=== PATIENT | female | born 1950 | race Caucasian/White ===

== ENCOUNTER 2018-03-14 13:59 | Emergency (ER) | payer MEDICARE, OTHER ==
[2018-03-14] MEDS ORDERED: Piperacillin/Tazobac ADVAN(*) 3.375 GM in NS 0.9% 100 ML* 100 ML IVPB ONE (14:52)
[2018-03-14] MEDS ORDERED: Tetan/Diph/Pertus SYR(Tdap)* 0.5 ML SYR(BOOSTRIX) use SYR IM ONE (14:54)
[2018-03-14] MEDS ORDERED: Morphine VIAL* 4 MG/ML VIAL (1 ml vial) IV ONE (14:55)
[2018-03-14 15:24] LABS: ABS Basophils 0.1 10^3/ul (0-0.2); ABS Eosinophils 0.3 10^3/ul (0-0.6); ABS Lymphocytes 2.3 10^3/ul (1.0-4.8); ABS Monocytes 0.7 10^3/ul (0-0.8); ABS Neutrophils 5.8 10^3/ul (1.5-7.7); ABS Nucleated RBC 0 10^3/ul; Eosinophil % 3.2 %; Hematocrit 43 % (35-47); Hemoglobin 14.5 g/dl (12.0-16.0); Lymphocyte % 25.5 %; Mean Corpuscular HGB Conc 34 g/dl (31-36); Mean Corpuscular Hemoglobin 30 pg (27-31); Mean Corpuscular Volume 89 fL (80-97); Mean Platelet Volume 7.7 fL (7.4-10.4); Nucleated Red Blood Cells % 0; Platelet Count 397 10^3/ul (150-450); Red Blood Count 4.86 10^6/ul (4.00-5.40); Red Cell Distribution Width 14 % (10.5-15); White Blood Count 9.2 10^3/ul (3.5-10.8)
[2018-03-14 15:40] LABS: ALT 24 U/L (7-52); AST 26 U/L (13-39); Albumin 4.4 g/dL (3.2-5.2); Albumin/Globulin Ratio 1.6 (1-3); Alkaline Phosphatase 87 U/L (34-104); Anion Gap 6 mmol/L (2-11); BUN/Creatinine Ratio 19.5 (8-20); Blood Urea Nitrogen 15 mg/dL (6-24); C Reactive Protein < 1.00 mg/L (<8.01); CO2 Carbon Dioxide 27 mmol/L (22-32); Calcium 9.4 mg/dL (8.6-10.3); Chloride 104 mmol/L (101-111); EGFR Non-African American 74.8 (>60); Globulin 2.7 g/dL (2-4); Glucose 98 mg/dL (70-100); Sodium 137 mmol/L (135-145); Total Protein 7.1 g/dL (6.4-8.9)
--- NOTE | 2018-03-14 15:48 | ED ---
Bite Injury/Animal - HPI Summary HPI Summary: 68-year-old female presents with right hand swelling today. She states that she got bit by a cat earlier today. She states that she went to exercise class and noticed swelling afterward. She states she did clean the area afterwards. She believes cat is up-to-date immunizations. Her tetanus is not up-to-date. She denies active bleeding. She is not diabetic. She is right-handed. She admits to severe pain. No numbness or tingling. she can still move her fingers. She seen by her primary and sent here. - History of Current Complaint Chief Complaint: EDAnimalBite Stated Complaint: POSSIBLE CELLULITIS Time Seen by Provider: 03/14/18 14:46 Pain Intensity: 7 - Allergies/Home Medications Allergies/Adverse Reactions: Allergies Allergy/AdvReac Type Severity Reaction Status Date / Time No Known Allergies Allergy Verified 03/14/18 14:08 Home Medications: Home Medications Calcium Carbonate/Vitamin D3 [Calcium 500 + Vit D Caplet] 1 tab PO DAILY [History Confirmed 03/14/18] PMH/Surg Hx/FS Hx/Imm Hx Endocrine/Hematology History: Denies: Hx Anticoagulant Therapy, Hx Diabetes Cardiovascular History: Denies: Hx Myocardial Infarction - Cancer History Hx Chemotherapy: No Hx Radiation Therapy: No Infectious Disease History: No Infectious Disease History: Denies: Traveled Outside the [place] in Last 30 Days - Family History Known Family History: Positive: Non-Contributory - Social History Alcohol Use: Occasionally Substance Use Type: Reports: None Smoking Status (MU): Never Smoked Tobacco Review of Systems Negative: Fever Negative: Chest Pain Negative: Shortness Of Breath Positive: Edema - right hand Positive: Rash All Other Systems Reviewed And Are Negative: Yes Physical Exam Triage Information Reviewed: Yes Vital Signs On Initial Exam: Initial Vitals Temp Pulse Resp BP Pulse Ox 98.6 F 78 15 136/75 99 03/14/18 14:04 03/14/18 14:04 03/14/18 14:04 03/14/18 14:04 03/14/18 14:04 Vital Signs Reviewed: Yes Appearance: Positive: Well-Appearing Skin: Positive: Warm, Dry, Other - edema to right hand with minimial erythema, superficial scratches to right hand Head/Face: Positive: Normal Head/Face Inspection Eyes: Positive: Normal, Conjunctiva Clear ENT: Positive: Pharynx normal Respiratory/Lung Sounds: Positive: Clear to Auscultation, Breath Sounds Present Cardiovascular: Positive: Normal, RRR Musculoskeletal: Positive: Strength/ROM Intact - fingers, Limited @ - palm, Other - nontender tendons right hand, good pulses Neurological: Positive: Normal Psychiatric: Positive: Normal Diagnostics - Vital Signs Vital Signs Temp Pulse Resp BP Pulse Ox 03/14/18 14:04 98.6 F 78 15 136/75 99 - Laboratory Lab Results: Lab Results 03/14/18 03/14/18 03/14/18 Range/Units 15:12 15:12 15:12 WBC 9.2 (3.5-10.8) 10^3/ul RBC 4.86 (4.00-5.40) 10^6/ul Hgb 14.5 (12.0-16.0) g/dl Hct 43 (35-47) % MCV 89 (80-97) fL MCH 30 (27-31) pg MCHC 34 (31-36) g/dl RDW 14 (10.5-15) % Plt Count 397 (150-450) 10^3/ul MPV 7.7 (7.4-10.4) fL Neut % (Auto) 62.7 % Lymph % (Auto) 25.5 % [place] % (Auto) 7.4 % Eos % (Auto) 3.2 % Baso % (Auto) 1.2 % Absolute Neuts (auto) 5.8 (1.5-7.7) 10^3/ul Absolute Lymphs (auto) 2.3 (1.0-4.8) 10^3/ul Absolute Monos (auto) 0.7 (0-0.8) 10^3/ul Absolute Eos (auto) 0.3 (0-0.6) 10^3/ul Absolute Basos (auto) 0.1 (0-0.2) 10^3/ul Absolute Nucleated RBC 0 10^3/ul Nucleated RBC % 0 Sodium 137 (135-145) mmol/L Potassium 4.0 (3.5-5.0) mmol/L Chloride 104 (101-111) mmol/L Carbon Dioxide 27 (22-32) mmol/L Anion Gap 6 (2-11) mmol/L BUN 15 (6-24) mg/dL Creatinine 0.77 (0.51-0.95) mg/dL Est GFR ( Amer) 90.5 (>60) Est GFR (Non-Af Amer) 74.8 (>60) BUN/Creatinine Ratio 19.5 (8-20) Glucose 98 (70-100) mg/dL Lactic Acid 0.9 (0.5-2.0) mmol/L Calcium 9.4 (8.6-10.3) mg/dL Total Bilirubin 0.30 (0.2-1.0) mg/dL AST 26 (13-39) U/L ALT 24 (7-52) U/L Alkaline Phosphatase 87 (34-104) U/L C-Reactive Protein < 1.00 (<8.01) mg/L Total Protein 7.1 (6.4-8.9) g/dL Albumin 4.4 (3.2-5.2) g/dL Globulin 2.7 (2-4) g/dL Albumin/Globulin Ratio 1.6 (1-3) Result Diagrams: 03/14/18 15:12 03/14/18 15:12 Lab Statement: Any lab studies that have been ordered have been reviewed, and results considered in the medical decision making process. - Radiology hand Radiology Interpretation Completed By: Radiologist Summary of Radiographic Findings: no fracture Bite Injury Course/Dx - Course Course Of Treatment: 68-year-old female presents with right hand swelling today. She states that she got bit by a cat earlier today. She states that she went to exercise class and noticed swelling afterward. She states she did clean the area afterwards. She believes cat is up-to-date immunizations. Her tetanus is not up-to-date. She denies active bleeding. She is not diabetic. She is right-handed. She admits to severe pain. No numbness or tingling. she can still move her fingers. She seen by her primary and sent here. On exam has edema noted to the dorsum of the right hand. Erythema notes this area. No streaking up the arm. Nontender over the tendons of the right hand. X-ray handed normal. Lab work without any significant abnormality. Gave dosed Zosyn here. We'll send him out an augmentin. Gave strict return precautions that if redness spreads to return. Patient understands agrees with plan. - Diagnoses Differential Diagnosis/HQI/PQRI: Positive: Cellulitis, Crush Injury, Puncture Provider Diagnosis: Cat bite, Cellulitis Discharge - Sign-Out/Discharge Documenting (check all that apply): Patient Departure - Discharge Plan Condition: Good Disposition: HOME Prescriptions: Amoxicillin/Clavulanate TAB* [Augmentin TAB 875*] 875 mg PO BID #19 tab Patient Education Materials: Cellulitis (ED) Referrals: Rachel Curry MD [Primary Care Provider] - Additional Instructions: Return to ED if develop fever, redness spreads up the arm or into fingers, or any new or worsening symptoms elevate, ice Take tyenlol or ibuprofen every 6 hours wash abrasions twice a day follow up with primary or care connections within 3 days - Billing Disposition and Condition Condition: GOOD Disposition: Home
[2018-03-14] MEDS ORDERED: Amoxicillin/Clavulanate TAB* 875 MG PO ONE (16:16)
[2018-03-14 17:20] VITALS: BP 143/94
== END 2018-03-14 17:19 | disposition home or self-care (01) ==
LOC: ED 13:59
DX: S61.451A Open bite of right hand, initial encounter (principal); L03.90 Cellulitis, unspecified; R60.9 Edema, unspecified; R21 Rash and other nonspecific skin eruption; W55.01XA Bitten by cat, initial encounter; Y92.9 Unspecified place or not applicable
CPT/HCPCS: 36415; 80053; 83605; 85025; 86140; 87040; 87070; 87077; 87186; 87205; 90471; 90715; 96365; 96375; 99282; A9270-GY; J2270; J2543

== ENCOUNTER 2018-03-15 16:13 | Inpatient (IN) | payer MEDICARE ==
[2018-03-15] MEDS ORDERED: NS 0.9% 1000 ML*IV.FLUID IV ONE (18:05)
[2018-03-15] MEDS ORDERED: Piperacillin/Tazobac ADVAN(*) 3.375 GM in NS 0.9% 100 ML* 100 ML IVPB ONE (18:06)
[2018-03-15 18:25] LABS: ABS Basophils 0.1 10^3/ul (0-0.2); ABS Eosinophils 0.2 10^3/ul (0-0.6); ABS Lymphocytes 2.3 10^3/ul (1.0-4.8); ABS Monocytes 0.9 10^3/ul (0-0.8); ABS Neutrophils 8.3 10^3/ul (1.5-7.7); ABS Nucleated RBC 0 10^3/ul; Eosinophil % 1.9 %; Hematocrit 42 % (35-47); Lymphocyte % 19.3 %; Mean Corpuscular HGB Conc 33 g/dl (31-36); Mean Corpuscular Hemoglobin 30 pg (27-31); Mean Corpuscular Volume 90 fL (80-97); Mean Platelet Volume 7.9 fL (7.4-10.4); Nucleated Red Blood Cells % 0.1; Platelet Count 346 10^3/ul (150-450); Red Cell Distribution Width 14 % (10.5-15); White Blood Count 11.7 10^3/ul (3.5-10.8)
[2018-03-15 18:36] LABS: Activated Partial Thrombo Time 32.6 seconds (26.0-36.3); INR 0.87 (0.77-1.02)
[2018-03-15 18:46] LABS: Albumin 4.2 g/dL (3.2-5.2); Albumin/Globulin Ratio 1.6 (1-3); BUN/Creatinine Ratio 20.5 (8-20); C Reactive Protein 8.5 mg/L (<8.01); Calcium 8.9 mg/dL (8.6-10.3); EGFR Non-African American 79.5 (>60); Globulin 2.6 g/dL (2-4); Total Bilirubin 0.4 mg/dL (0.2-1.0); Total Protein 6.8 g/dL (6.4-8.9)
--- NOTE | 2018-03-15 19:18 | ED ---
Skin Complaint - HPI Summary HPI Summary: 68 year old female with no medical conditions presents with continuation of cellulitis today. She was seen here yesterday by me and was given IV Zosyn. She's wsa placed on Augmentin and had minimal erythema and edema noted to the right hand. She states over the past day it is increased to her right forearm and into her fingers. she has been placing ice on the area. She denies any fevers or chills. No other symptoms. No drainage from the wound. She states she is pain on the upper arm. Denies any chest pressure or shortness of breath. - History of Current Complaint Chief Complaint: EDExtremityUpper Time Seen by Provider: 03/15/18 18:01 Stated Complaint: SWOLLEN RED HAND Pain Intensity: 6 - Allergy/Home Medications Allergies/Adverse Reactions: Allergies Allergy/AdvReac Type Severity Reaction Status Date / Time No Known Allergies Allergy Verified 03/15/18 16:25 PMH/Surg Hx/FS Hx/Imm Hx Endocrine/Hematology History: Denies: Hx Anticoagulant Therapy, Hx Diabetes Cardiovascular History: Denies: Hx Myocardial Infarction - Cancer History Hx Chemotherapy: No Hx Radiation Therapy: No Infectious Disease History: No Infectious Disease History: Denies: Traveled Outside the [place] in Last 30 Days - Family History Known Family History: Positive: Non-Contributory - Social History Alcohol Use: Occasionally Substance Use Type: Reports: None Smoking Status (MU): Never Smoked Tobacco Review of Systems Negative: Fever Negative: Chest Pain Negative: Shortness Of Breath Positive: Edema Positive: Rash All Other Systems Reviewed And Are Negative: Yes Physical Exam Triage Information Reviewed: Yes Vital Signs On Initial Exam: Initial Vitals Temp Pulse Resp BP Pulse Ox 98.5 F 90 18 128/68 98 03/15/18 16:23 03/15/18 16:23 03/15/18 16:23 03/15/18 16:23 03/15/18 16:23 Vital Signs Reviewed: Yes Appearance: Positive: Well-Appearing Skin: Positive: Warm, Dry Head/Face: Positive: Normal Head/Face Inspection Eyes: Positive: Normal, Conjunctiva Clear ENT: Positive: Pharynx normal Respiratory/Lung Sounds: Positive: Clear to Auscultation, Breath Sounds Present Cardiovascular: Positive: Normal, RRR Musculoskeletal: Positive: Strength/ROM Intact - right fingers, Edema Right - hand, Other - erythema to right hand extending up to right forearm, streaking up the right arm, warm to touch, good pulses Neurological: Positive: Normal Psychiatric: Positive: Normal Diagnostics - Vital Signs Vital Signs Temp Pulse Resp BP Pulse Ox 03/15/18 16:23 98.5 F 90 18 128/68 98 - Laboratory Lab Results: Lab Results 03/15/18 03/15/18 03/15/18 Range/Units 17:24 17:25 17:25 WBC 11.7 H (3.5-10.8) 10^3/ul RBC 4.70 (4.00-5.40) 10^6/ul Hgb 14.0 (12.0-16.0) g/dl Hct 42 (35-47) % MCV 90 (80-97) fL MCH 30 (27-31) pg MCHC 33 (31-36) g/dl RDW 14 (10.5-15) % Plt Count 346 (150-450) 10^3/ul MPV 7.9 (7.4-10.4) fL Neut % (Auto) 70.3 % Lymph % (Auto) 19.3 % [place] % (Auto) 7.5 % Eos % (Auto) 1.9 % Baso % (Auto) 1.0 % Absolute Neuts (auto) 8.3 H (1.5-7.7) 10^3/ul Absolute Lymphs (auto) 2.3 (1.0-4.8) 10^3/ul Absolute Monos (auto) 0.9 H (0-0.8) 10^3/ul Absolute Eos (auto) 0.2 (0-0.6) 10^3/ul Absolute Basos (auto) 0.1 (0-0.2) 10^3/ul Absolute Nucleated RBC 0 10^3/ul Nucleated RBC % 0.1 INR (Anticoag Therapy) (0.77-1.02) APTT (26.0-36.3) seconds Sodium 139 (135-145) mmol/L Potassium 4.0 (3.5-5.0) mmol/L Chloride 108 (101-111) mmol/L Carbon Dioxide 23 (22-32) mmol/L Anion Gap 8 (2-11) mmol/L BUN 15 (6-24) mg/dL Creatinine 0.73 (0.51-0.95) mg/dL Est GFR ( Amer) 96.2 (>60) Est GFR (Non-Af Amer) 79.5 (>60) BUN/Creatinine Ratio 20.5 H (8-20) Glucose 104 H (70-100) mg/dL Lactic Acid 1.5 (0.5-2.0) mmol/L Calcium 8.9 (8.6-10.3) mg/dL Total Bilirubin 0.40 (0.2-1.0) mg/dL AST 25 (13-39) U/L ALT 22 (7-52) U/L Alkaline Phosphatase 80 (34-104) U/L C-Reactive Protein 8.50 H (<8.01) mg/L Total Protein 6.8 (6.4-8.9) g/dL Albumin 4.2 (3.2-5.2) g/dL Globulin 2.6 (2-4) g/dL Albumin/Globulin Ratio 1.6 (1-3) 03/15/18 Range/Units 17:25 WBC (3.5-10.8) 10^3/ul RBC (4.00-5.40) 10^6/ul Hgb (12.0-16.0) g/dl Hct (35-47) % MCV (80-97) fL MCH (27-31) pg MCHC (31-36) g/dl RDW (10.5-15) % Plt Count (150-450) 10^3/ul MPV (7.4-10.4) fL Neut % (Auto) % Lymph % (Auto) % [place] % (Auto) % Eos % (Auto) % Baso % (Auto) % Absolute Neuts (auto) (1.5-7.7) 10^3/ul Absolute Lymphs (auto) (1.0-4.8) 10^3/ul Absolute Monos (auto) (0-0.8) 10^3/ul Absolute Eos (auto) (0-0.6) 10^3/ul Absolute Basos (auto) (0-0.2) 10^3/ul Absolute Nucleated RBC 10^3/ul Nucleated RBC % INR (Anticoag Therapy) 0.87 (0.77-1.02) APTT 32.6 (26.0-36.3) seconds Sodium (135-145) mmol/L Potassium (3.5-5.0) mmol/L Chloride (101-111) mmol/L Carbon Dioxide (22-32) mmol/L Anion Gap (2-11) mmol/L BUN (6-24) mg/dL Creatinine (0.51-0.95) mg/dL Est GFR ( Amer) (>60) Est GFR (Non-Af Amer) (>60) BUN/Creatinine Ratio (8-20) Glucose (70-100) mg/dL Lactic Acid (0.5-2.0) mmol/L Calcium (8.6-10.3) mg/dL Total Bilirubin (0.2-1.0) mg/dL AST (13-39) U/L ALT (7-52) U/L Alkaline Phosphatase (34-104) U/L C-Reactive Protein (<8.01) mg/L Total Protein (6.4-8.9) g/dL Albumin (3.2-5.2) g/dL Globulin (2-4) g/dL Albumin/Globulin Ratio (1-3) Result Diagrams: 03/15/18 17:25 03/15/18 17:25 Lab Statement: Any lab studies that have been ordered have been reviewed, and results considered in the medical decision making process. Course/Dx - Course Course Of Treatment: 68 year old female with no medical conditions presents with continuation of cellulitis today. She was seen here yesterday by me and was given IV Zosyn. She's wsa placed on Augmentin and had minimal erythema and edema noted to the right hand. She states over the past day it is increased to her right forearm and into her fingers. she has been placing ice on the area. She denies any fevers or chills. No other symptoms. No drainage from the wound. She states she is pain on the upper arm. Denies any chest pressure or shortness of breath. On exam has erythema from mid forearm down to her finger tips on on the dorsum of her right hand. The area is warm to the touch. She has streaking up her right arm. gave dose of Zosyn here. wound culture from yesterday was pasteurella. White blood cell count elevated. Discussed with hospitalist Dr. Miramontes who agrees to admit. - Differential Diagnoses - Skin Complaint Differential Diagnoses: Abscess, Cellulitis, Contact Dermatitis - Diagnoses Provider Diagnoses: Cellulitis of right arm, Cat bite Discharge - Sign-Out/Discharge Documenting (check all that apply): Patient Departure - Discharge Plan Condition: Stable Disposition: ADMITTED TO [facility] Referrals: Rachel Curry MD [Primary Care Provider] - - Billing Disposition and Condition Condition: STABLE Disposition: Admitted to [facility]
[2018-03-15] MEDS ORDERED: Acetaminophen TAB* 325 MG PO PRN (20:00)
[2018-03-15] MEDS ORDERED: Ibuprofen TAB* 400 MG PO PRN (22:51)
[2018-03-15] MEDS: Piperacillin/Tazobac ADVAN(*) 3.375 GM in NS 0.9% 100 ML* 100 ML IVPB SCH (23:13)
--- NOTE | 2018-03-15 23:24 | HP ---
CC: Dr. Rachel Curry ADMISSION HISTORY AND PHYSICAL: DATE OF ADMISSION: 03/15/18 CHIEF COMPLAINT: Right hand pain. HISTORY OF PRESENT ILLNESS: Ms. Tucker is a 68-year-old woman with no past medical history who s ustained a bite from her cat 1 day prior to admission. She was seen in the emergency department yest erday after the cat bite and was seen to have erythema around the laceration on the dorsum of her rig ht hand, extending towards her fingers. She was given 1 dose of intravenous Zosyn and sent home with a prescription for Augmentin. She states that she took the Augmentin actually with breakfast and tono nc today, but had increasing pain and increasing redness in her forearm. Culture was taken on the 0 03/14/18, which today is growing pasteurella. The patient has had no fevers, no systemic symptoms, but has increasing right hand pain and swelling and she came back to the emergency department. PAST MEDICAL HISTORY: None. PAST SURGICAL HISTORY: Tubal ligation years ago. MEDICATIONS ON ADMISSION: 1. Calcium with vitamin D, 1 tab twice a day. 2. Augmentin as above. ALLERGIES: None. FAMILY HISTORY: Notable for maternal uncle with type 1 diabetes, sister with cancer of unknown type, alive. She does not know too much about her parents' history or her siblings. SOCIAL HISTORY: She is a retired insurance administrative assistant. She is . She has no children. S he never smoked. She drinks alcohol about 1 glass of wine per day. No recreational drugs. REVIEW OF SYSTEMS: The patient denies any fevers, weight loss, or anorexia. The patient denies any chest pain or palpitations. Remainder of 14-point review of systems negative other than mentioned in the HPI. PHYSICAL EXAMINATION GENERAL: She is well-appearing, alert, in no acute distress. VITAL SIGNS: Temperature is 36.9, pulse 72, respirations 14, blood pressure is 109/87, and O2 sat is 98%. HEENT: Head is normocephalic and atraumatic. Sclerae anicteric. Pupils equal, round, and reactive to light and accommodation. Oropharynx is moist. No lesions. NECK: No JVD. No carotid bruits. No thyromegaly. LUNGS: Clear to auscultation and percussion bilaterally. HEART: Regular rate and rhythm without murmurs, rubs, or gallops. ABDOMEN: Soft, nontender. Positive bowel sounds without hepatosplenomegaly. EXTREMITIES: No lower extremity edema. Dorsalis pedis pulses are 1+ bilaterally. The right hand is severely edematous and tender. There is bright red erythema extending from a horizontal 1.5 cm super ficial laceration. The erythema extends into the fingers and up the forearm about half way. There w as also a patch of streaking in the elbow near the medial epicondyle. No lymphadenopathy was appreci ated. The patient could not flex and make a fist on the right hand more than 50%. NEUROLOGIC: Cranial nerves II through XII are intact. Motor strength is 5/5 throughout. Deep tendo n reflexes are symmetric. The patient is alert and oriented. She is quite anxious and argumentative . DIAGNOSTIC STUDIES/LABORATORY DATA: Sodium 139, potassium 4.0, chloride 108, bicarb 23, BUN 15, cre atinine 0.73, glucose 104, calcium 8.9, albumin 4.2, AST 25, ALT 20. CRP 8.5, INR 0.87, PTT of 32.6. White count 11.7, hemoglobin 14.0, hematocrit 42%, platelets of 346. ASSESSMENT AND PLAN: A 68-year-old woman with pasteurella cellulitis to a cat bite, it is not respon ding to oral antibiotics. The patient will be admitted to the hospital on intravenous Zosyn, which s hould cover pasteurella. She will have her right hand elevated which is also of extreme importance i n this situation. If the problem progresses further, she may need a consultation with Hand Surgery. At this point, I do not see any signs of abscess or tenosynovitis. The patient declines any opioid pain medications for pain control. She would like the Tylenol as nee ded for pain. Code status is full. DVT prophylaxis will be sequential compression devices as she is at moderate risk for DVT given her a ge and current infection. [id number]/[facility] #: [id number]
[2018-03-16 00:17] LABS: Urine Appearance Clear; Urine Bacteria Absent (Absent); Urine Bilirubin Negative (Negative); Urine Blood 2+ (Negative); Urine Color Straw; Urine Glucose Negative (Negative); Urine Ketones Negative (Negative); Urine Nitrite Negative (Negative); Urine Protein Negative (Negative); Urine Red Blood Cell 1+(3-5/hpf) (Absent); Urine Specific Gravity 1.011 (1.010-1.030); Urine Urobilinogen Negative (Negative); Urine White Blood Cell Trace(0-5/hpf) (Absent)
--- NOTE | 2018-03-16 05:47 | PN ---
Progress Note - Progress Note Date of Service: 03/14/18 Note: Wound Gram stain grew Pasteurella Multocida 1+ Patient is admitted for IV abx Nothing further at this time
[2018-03-16 07:01] LABS: ABS Basophils 0.1 10^3/ul (0-0.2); ABS Eosinophils 0.3 10^3/ul (0-0.6); ABS Lymphocytes 2.6 10^3/ul (1.0-4.8); ABS Monocytes 0.8 10^3/ul (0-0.8); ABS Neutrophils 6.7 10^3/ul (1.5-7.7); ABS Nucleated RBC 0 10^3/ul; Eosinophil % 3.2 %; Hematocrit 39 % (35-47); Lymphocyte % 24.6 %; Mean Corpuscular HGB Conc 34 g/dl (31-36); Mean Corpuscular Hemoglobin 30 pg (27-31); Mean Corpuscular Volume 89 fL (80-97); Mean Platelet Volume 7.8 fL (7.4-10.4); Nucleated Red Blood Cells % 0.1; Platelet Count 350 10^3/ul (150-450); Red Blood Count 4.33 10^6/ul (4.00-5.40); Red Cell Distribution Width 14 % (10.5-15); White Blood Count 10.6 10^3/ul (3.5-10.8)
[2018-03-16] MEDS: Piperacillin/Tazobac ADVAN(*) 3.375 GM in NS 0.9% 100 ML* 100 ML IVPB SCH ×3 (07:33→23:28)
[2018-03-16] MEDS: Cholecalciferol TAB* 400 UNIT PO SCH (09:39)
[2018-03-16] MEDS: Calcium Carbonate TAB* 1250 MG (CALCIUM 500 MG) PO SCH (09:40)
--- NOTE | 2018-03-16 16:08 | PN ---
Subjective Date of Service: 03/16/18 Interval History: pt reports she feels that her hand is a little better today with less redness and swelling. Reports some loose stolls which she states happens with every antibiotic she takes. no abdominal pain. No fevers or chills. reports "great appetite". Objective Active Medications: Acetaminophen (Tylenol Tab*) 650 mg PO Q4H PRN PRN Reason: FEVER/PAIN Calcium Carbonate (Calcium Carbonate Tab*) 1,250 mg PO DAILY [facility] Last Admin: 03/16/18 09:40 Dose: 1,250 mg Cholecalciferol (Vitamin D Tab*) 400 unit PO DAILY [facility] Last Admin: 03/16/18 09:39 Dose: 400 unit Piperacillin Sod/Tazobactam (Sod 3.375 gm/ Sodium Chloride) 100 mls @ 25 mls/ hr IVPB Q8H [facility] Last Admin: 03/16/18 15:30 Dose: 25 mls/hr Ibuprofen (Motrin Tab*) 400 mg PO Q6H PRN PRN Reason: PAIN Last Admin: 03/15/18 23:22 Dose: 400 mg Pneumococcal Polyvalent Vaccine (Pneumococcal Vac 23-Polyvalent*) 0.5 ml IM .ONCE ONE Stop: 03/17/18 09:01 Vital Signs - 8 hr 03/16/18 12:01 Temperature 98.1 F Pulse Rate 71 Respiratory 20 Rate Blood Pressure 119/68 (mmHg) O2 Sat by Pulse 96 Oximetry Oxygen Devices in Use Now: None Appearance: 68 yo female A+O x3 in NAD Eyes: No Scleral Icterus, PERRLA Ears/Nose/Mouth/Throat: Mucous Membranes Moist Neck: NL Appearance and Movements; NL JVP Respiratory: Symmetrical Chest Expansion and Respiratory Effort, Clear to Auscultation Cardiovascular: NL Sounds; No Murmurs; No JVD, RRR, No Edema Abdominal: NL Sounds; No Tenderness; No Distention, - Extremities: No Clubbing, Cyanosis Skin: - - right hand has moderate edema with noted linear bite rishabh on top of hand - no dranage noted. radial pulse 2+ Neurological: Alert and Oriented x 3, NL Sensation, NL Gait, NL Muscle Strength and Tone Lines/Tubes/Other Access: Clean, Dry and Intact Peripheral IV Nutrition: Taking PO's Result Diagrams: 03/16/18 06:51 03/15/18 17:25 Additional Lab and Data: Lab Results 03/15/18 03/15/18 03/15/18 Range/Units 17:24 17:25 17:25 WBC 11.7 H (3.5-10.8) 10^3/ul RBC 4.70 (4.00-5.40) 10^6/ul Hgb 14.0 (12.0-16.0) g/dl Hct 42 (35-47) % MCV 90 (80-97) fL MCH 30 (27-31) pg MCHC 33 (31-36) g/dl RDW 14 (10.5-15) % Plt Count 346 (150-450) 10^3/ul MPV 7.9 (7.4-10.4) fL Neut % (Auto) 70.3 % Lymph % (Auto) 19.3 % [place] % (Auto) 7.5 % Eos % (Auto) 1.9 % Baso % (Auto) 1.0 % Absolute Neuts (auto) 8.3 H (1.5-7.7) 10^3/ul Absolute Lymphs (auto) 2.3 (1.0-4.8) 10^3/ul Absolute Monos (auto) 0.9 H (0-0.8) 10^3/ul Absolute Eos (auto) 0.2 (0-0.6) 10^3/ul Absolute Basos (auto) 0.1 (0-0.2) 10^3/ul Absolute Nucleated RBC 0 10^3/ul Nucleated RBC % 0.1 INR (Anticoag Therapy) (0.77-1.02) APTT (26.0-36.3) seconds Sodium 139 (135-145) mmol/L Potassium 4.0 (3.5-5.0) mmol/L Chloride 108 (101-111) mmol/L Carbon Dioxide 23 (22-32) mmol/L Anion Gap 8 (2-11) mmol/L BUN 15 (6-24) mg/dL Creatinine 0.73 (0.51-0.95) mg/dL Est GFR ( Amer) 96.2 (>60) Est GFR (Non-Af Amer) 79.5 (>60) BUN/Creatinine Ratio 20.5 H (8-20) Glucose 104 H (70-100) mg/dL Lactic Acid 1.5 (0.5-2.0) mmol/L Calcium 8.9 (8.6-10.3) mg/dL Total Bilirubin 0.40 (0.2-1.0) mg/dL AST 25 (13-39) U/L ALT 22 (7-52) U/L Alkaline Phosphatase 80 (34-104) U/L C-Reactive Protein 8.50 H (<8.01) mg/L Total Protein 6.8 (6.4-8.9) g/dL Albumin 4.2 (3.2-5.2) g/dL Globulin 2.6 (2-4) g/dL Albumin/Globulin Ratio 1.6 (1-3) 03/15/18 Range/Units 17:25 WBC (3.5-10.8) 10^3/ul RBC (4.00-5.40) 10^6/ul Hgb (12.0-16.0) g/dl Hct (35-47) % MCV (80-97) fL MCH (27-31) pg MCHC (31-36) g/dl RDW (10.5-15) % Plt Count (150-450) 10^3/ul MPV (7.4-10.4) fL Neut % (Auto) % Lymph % (Auto) % [place] % (Auto) % Eos % (Auto) % Baso % (Auto) % Absolute Neuts (auto) (1.5-7.7) 10^3/ul Absolute Lymphs (auto) (1.0-4.8) 10^3/ul Absolute Monos (auto) (0-0.8) 10^3/ul Absolute Eos (auto) (0-0.6) 10^3/ul Absolute Basos (auto) (0-0.2) 10^3/ul Absolute Nucleated RBC 10^3/ul Nucleated RBC % INR (Anticoag Therapy) 0.87 (0.77-1.02) APTT 32.6 (26.0-36.3) seconds Sodium (135-145) mmol/L Potassium (3.5-5.0) mmol/L Chloride (101-111) mmol/L Carbon Dioxide (22-32) mmol/L Anion Gap (2-11) mmol/L BUN (6-24) mg/dL Creatinine (0.51-0.95) mg/dL Est GFR ( Amer) (>60) Est GFR (Non-Af Amer) (>60) BUN/Creatinine Ratio (8-20) Glucose (70-100) mg/dL Lactic Acid (0.5-2.0) mmol/L Calcium (8.6-10.3) mg/dL Total Bilirubin (0.2-1.0) mg/dL AST (13-39) U/L ALT (7-52) U/L Alkaline Phosphatase (34-104) U/L C-Reactive Protein (<8.01) mg/L Total Protein (6.4-8.9) g/dL Albumin (3.2-5.2) g/dL Globulin (2-4) g/dL Albumin/Globulin Ratio (1-3) Assess/Plan/Problems-Billing Assessment: 68 yo female with no significant PMH who had a cat bite around with pasterurella cellulitis not responding to oral abx, admitted for IV abx. - Patient Problems (1) Cellulitis Comment: - continue Zosyn; wound cx growing Pasteurella; await sensitivity report, blood cx negative - afebrile, mild leukocytosis resolved - start probiotic BID (2) DVT prophylaxis Comment: SCDs (3) Patient is full code Status and Disposition: inpatient for IV abx.
[2018-03-16] MEDS ORDERED: Lactobacillus Acidophilus* 1 TAB PO ONE (16:21)
[2018-03-16] MEDS ORDERED: NS 0.9% 1000 ML* 1,000 ML IV SCH (16:30)
[2018-03-16] MEDS ORDERED: Melatonin 3 MG TAB PO PRN (16:41)
[2018-03-17 06:48] LABS: ABS Basophils 0.1 10^3/ul (0-0.2); ABS Eosinophils 0.4 10^3/ul (0-0.6); ABS Lymphocytes 2.7 10^3/ul (1.0-4.8); ABS Monocytes 0.8 10^3/ul (0-0.8); ABS Neutrophils 4.4 10^3/ul (1.5-7.7); ABS Nucleated RBC 0 10^3/ul; Eosinophil % 4.8 %; Hematocrit 38 % (35-47); Hemoglobin 12.6 g/dl (12.0-16.0); Lymphocyte % 32.3 %; Mean Corpuscular HGB Conc 33 g/dl (31-36); Mean Corpuscular Hemoglobin 30 pg (27-31); Mean Corpuscular Volume 90 fL (80-97); Nucleated Red Blood Cells % 0.1; Platelet Count 335 10^3/ul (150-450); Red Cell Distribution Width 14 % (10.5-15); White Blood Count 8.3 10^3/ul (3.5-10.8)
[2018-03-17 07:04] LABS: BUN/Creatinine Ratio 13.9 (8-20); Calcium 8.8 mg/dL (8.6-10.3); EGFR Non-African American 72.6 (>60); Potassium 4.1 mmol/L (3.5-5.0)
[2018-03-17] MEDS: Lactobacillus Acidophilus* 1 TAB PO SCH ×2 (08:01→21:14)
[2018-03-17] MEDS ORDERED: Pneumococcal *Vac Polyvalent 0.5 ML VIAL IM ONE (09:00)
[2018-03-17] MEDS: Piperacillin/Tazobac ADVAN(*) 3.375 GM in NS 0.9% 100 ML* 100 ML IVPB SCH (09:04)
[2018-03-17] MEDS: Cholecalciferol TAB* 400 UNIT PO SCH (09:04)
[2018-03-17] MEDS: Calcium Carbonate TAB* 1250 MG (CALCIUM 500 MG) PO SCH (09:04)
--- NOTE | 2018-03-17 13:59 | PN ---
Subjective Date of Service: 03/17/18 Interval History: Pt was very upset on my arrival yelling "I didnt expect you now! I need to take a shower now! This is ridiculous." Pt reporting she continues to have loose stools but a little less than yesterday. Reports right hand is less red and swollen and notes improvement. She reports initially the swelling and redness went all the way past her wrist and that has resolved. Denies fever or chills. Objective Active Medications: Acetaminophen (Tylenol Tab*) 650 mg PO Q4H PRN PRN Reason: FEVER/PAIN Calcium Carbonate (Calcium Carbonate Tab*) 1,250 mg PO DAILY [facility] Last Admin: 03/17/18 09:04 Dose: 1,250 mg Cholecalciferol (Vitamin D Tab*) 400 unit PO DAILY [facility] Last Admin: 03/17/18 09:04 Dose: 400 unit Piperacillin Sod/Tazobactam (Sod 3.375 gm/ Sodium Chloride) 100 mls @ 25 mls/ hr IVPB Q8H [facility] Last Admin: 03/17/18 09:04 Dose: 25 mls/hr Ibuprofen (Motrin Tab*) 400 mg PO Q6H PRN PRN Reason: PAIN Last Admin: 03/15/18 23:22 Dose: 400 mg Lactobacillus Rhamnosus (Lactobacillus Acidophilus*) 1 tab PO BID [facility] Last Admin: 03/17/18 08:01 Dose: 1 tab Melatonin (Melatonin) 3 mg PO BEDTIME PRN; Protocol PRN Reason: SLEEP Vital Signs - 8 hr 03/17/18 08:31 Temperature 97.5 F Pulse Rate 82 Respiratory 20 Rate Blood Pressure 126/83 (mmHg) O2 Sat by Pulse 98 Oximetry Oxygen Devices in Use Now: None Appearance: 68 yo female A+Ox3 in NAD Eyes: No Scleral Icterus, PERRLA Ears/Nose/Mouth/Throat: NL Teeth, Lips, Gums, Mucous Membranes Moist Neck: NL Appearance and Movements; NL JVP Respiratory: Symmetrical Chest Expansion and Respiratory Effort, Clear to Auscultation Cardiovascular: NL Sounds; No Murmurs; No JVD, RRR, No Edema Abdominal: NL Sounds; No Tenderness; No Distention Extremities: No Clubbing, Cyanosis Skin: - - right hand mild generalized swelling, no noted erythema. Linear scabbed wound on top of hand - no noted abscess on palpation Neurological: Alert and Oriented x 3, NL Sensation, NL Gait, NL Muscle Strength and Tone Lines/Tubes/Other Access: Clean, Dry and Intact Peripheral IV Nutrition: Taking PO's Result Diagrams: 03/17/18 06:18 03/17/18 06:18 Additional Lab and Data: Lab Results 03/15/18 03/15/18 03/15/18 Range/Units 17:24 17:25 17:25 WBC 11.7 H (3.5-10.8) 10^3/ul RBC 4.70 (4.00-5.40) 10^6/ul Hgb 14.0 (12.0-16.0) g/dl Hct 42 (35-47) % MCV 90 (80-97) fL MCH 30 (27-31) pg MCHC 33 (31-36) g/dl RDW 14 (10.5-15) % Plt Count 346 (150-450) 10^3/ul MPV 7.9 (7.4-10.4) fL Neut % (Auto) 70.3 % Lymph % (Auto) 19.3 % Meagher % (Auto) 7.5 % Eos % (Auto) 1.9 % Baso % (Auto) 1.0 % Absolute Neuts (auto) 8.3 H (1.5-7.7) 10^3/ul Absolute Lymphs (auto) 2.3 (1.0-4.8) 10^3/ul Absolute Monos (auto) 0.9 H (0-0.8) 10^3/ul Absolute Eos (auto) 0.2 (0-0.6) 10^3/ul Absolute Basos (auto) 0.1 (0-0.2) 10^3/ul Absolute Nucleated RBC 0 10^3/ul Nucleated RBC % 0.1 INR (Anticoag Therapy) (0.77-1.02) APTT (26.0-36.3) seconds Sodium 139 (135-145) mmol/L Potassium 4.0 (3.5-5.0) mmol/L Chloride 108 (101-111) mmol/L Carbon Dioxide 23 (22-32) mmol/L Anion Gap 8 (2-11) mmol/L BUN 15 (6-24) mg/dL Creatinine 0.73 (0.51-0.95) mg/dL Est GFR ( Amer) 96.2 (>60) Est GFR (Non-Af Amer) 79.5 (>60) BUN/Creatinine Ratio 20.5 H (8-20) Glucose 104 H (70-100) mg/dL Lactic Acid 1.5 (0.5-2.0) mmol/L Calcium 8.9 (8.6-10.3) mg/dL Total Bilirubin 0.40 (0.2-1.0) mg/dL AST 25 (13-39) U/L ALT 22 (7-52) U/L Alkaline Phosphatase 80 (34-104) U/L C-Reactive Protein 8.50 H (<8.01) mg/L Total Protein 6.8 (6.4-8.9) g/dL Albumin 4.2 (3.2-5.2) g/dL Globulin 2.6 (2-4) g/dL Albumin/Globulin Ratio 1.6 (1-3) 03/15/18 Range/Units 17:25 WBC (3.5-10.8) 10^3/ul RBC (4.00-5.40) 10^6/ul Hgb (12.0-16.0) g/dl Hct (35-47) % MCV (80-97) fL MCH (27-31) pg MCHC (31-36) g/dl RDW (10.5-15) % Plt Count (150-450) 10^3/ul MPV (7.4-10.4) fL Neut % (Auto) % Lymph % (Auto) % Meagher % (Auto) % Eos % (Auto) % Baso % (Auto) % Absolute Neuts (auto) (1.5-7.7) 10^3/ul Absolute Lymphs (auto) (1.0-4.8) 10^3/ul Absolute Monos (auto) (0-0.8) 10^3/ul Absolute Eos (auto) (0-0.6) 10^3/ul Absolute Basos (auto) (0-0.2) 10^3/ul Absolute Nucleated RBC 10^3/ul Nucleated RBC % INR (Anticoag Therapy) 0.87 (0.77-1.02) APTT 32.6 (26.0-36.3) seconds Sodium (135-145) mmol/L Potassium (3.5-5.0) mmol/L Chloride (101-111) mmol/L Carbon Dioxide (22-32) mmol/L Anion Gap (2-11) mmol/L BUN (6-24) mg/dL Creatinine (0.51-0.95) mg/dL Est GFR ( Amer) (>60) Est GFR (Non-Af Amer) (>60) BUN/Creatinine Ratio (8-20) Glucose (70-100) mg/dL Lactic Acid (0.5-2.0) mmol/L Calcium (8.6-10.3) mg/dL Total Bilirubin (0.2-1.0) mg/dL AST (13-39) U/L ALT (7-52) U/L Alkaline Phosphatase (34-104) U/L C-Reactive Protein (<8.01) mg/L Total Protein (6.4-8.9) g/dL Albumin (3.2-5.2) g/dL Globulin (2-4) g/dL Albumin/Globulin Ratio (1-3) Microbiology and Other Data: Microbiology 03/16/18 00:01 Urine Culture - Final Urine No Growth (<1,000 CFU/mL) Assess/Plan/Problems-Billing Assessment: 68 yo female with no significant PMH who had a cat bite around with pasterurella cellulitis not responding to oral abx, admitted for IV abx. - Patient Problems (1) Cellulitis Comment: - improving - wound cx growing Pasteurella; DC zoysn sensitive cefazolin - blood cx negative - Hand xray negative for fracture - afebrile, mild leukocytosis resolved - probiotic BID - developed abx induced diarrhea on zosyn (per pt this happens with every Abx - 3 stools today - > less than yesterday) - ID consult placed for sunday (2) DVT prophylaxis Comment: SCDs (3) Patient is full code Status and Disposition: inpatient for IV abx.
[2018-03-17] MEDS ORDERED: ceFAZolin 1 GM ADVAN(*) 1 GM in NS 0.9% 50 ML* 50 ML IVPB SCH (14:00)
[2018-03-17] MEDS: ceFAZolin 1 GM ADVAN(*) 1 GM in NS 0.9% 50 ML* 50 ML IVPB SCH ×2 (16:51→23:58)
[2018-03-18] MEDS: Lactobacillus Acidophilus* 1 TAB PO SCH (08:50)
[2018-03-18] MEDS: Calcium Carbonate TAB* 1250 MG (CALCIUM 500 MG) PO SCH (08:50)
[2018-03-18] MEDS: Cholecalciferol TAB* 400 UNIT PO SCH (08:50)
[2018-03-18] MEDS: ceFAZolin 1 GM ADVAN(*) 1 GM in NS 0.9% 50 ML* 50 ML IVPB SCH ×2 (09:31→15:33)
[2018-03-18 15:39] VITALS: BP 129/71
--- NOTE | 2018-03-18 16:25 | CONS ---
CONSULTATION REPORT: DATE OF CONSULT: 03/18/18 REQUESTING PROVIDER: Analy Bush NP CONSULTING SERVICE: Infectious Disease. REASON FOR CONSULT: Cat bite and cellulitis. IMPRESSION: Right hand cellulitis after a cat bite. Culture from our initial ER visit grew pasteurella. Cat is up to date on rabies vaccine. She had a tetanus booster here and is improving. RECOMMENDATION: Keflex 500 mg by mouth 3 times a day and Flagyl 250 mg by mouth twice a day for 10 more days. Follow up with me next week. She understands the need to keep the arm elevated, if becomes more active, use ibuprofen and ice. She understands the need to return to the hospital if fever , worsening, swelling, purulent drainage, or inability to use her hand. HISTORY OF PRESENT ILLNESS: This is a 68-year-old woman whose cat bit her last week. She was seen in the ER on the , given a dose of Zosyn, prescribed Augmentin, and sent home. The bite was on the dorsum of the right hand. Despite antibiotics, her whole hand swelled up and the swelling spread up her arm a bit. She had some chills at home. Because of the swelling and pain, she came to the hospital the day before. White count was 12,000. She was started on Zosyn which gave her some diarrhea. Yesterday, she was switched to Ancef, which she is tolerating well. After 2 of the IV antibiotics, her hand swelling has much improved. Range of motion is almost back to normal. She has no chills and is anxious to go home. She had her tetanus booster here and the cat' s rabies vaccines are up to date. Apparently, the cat is a biter and has done this a number of times to her. PAST MEDICAL HISTORY: None. MEDICATIONS: 1. Tylenol. 2. Calcium. 3. Cephazolin. 4. Ibuprofen. 5. Melatonin. 6. Lactobacillus. ALLERGIES: No known drug allergies. FAMILY HISTORY: No recurrent infections. SOCIAL HISTORY: She lives in [place] with her and this ruthie cat. REVIEW OF SYSTEMS: All negative to 10-point review except as noted above in the history of present illness. PHYSICAL EXAM: Vital Signs: Temperature is 36, heart rate is 70, respiratory rate 20, blood pressure 124/70, and oxygen saturation 98% on room air. In general, she is awake, not in distress. Neurologic: She is oriented x3. HEENT : There is no conjunctival hemorrhage. Oropharynx without lesions. Heart: Regular rate and rhythm without murmurs, rubs, or gallops. Lungs: Clear to auscultation bilaterally. Abdomen: Soft, nontender, and nondistended. Bowel sounds present. Skin: There is no rash or splinter hemorrhage. Musculoskeletal : Right hand, there is mild diffuse edema to the MCP joint. There is no tenderness. There is trace erythema and a central dorsal 5 mm eschar. No crepitus or fluctuance. Finger flexion is almost normal. Extension is normal. Wrist flexion and extension normal. DIAGNOSTIC STUDIES/LAB DATA: White blood cell count 8, hemoglobin 12, platelets 235, creatinine 0.8. Please see impression and recommendations outlined above. Thanks for asking me to see Ms. Tucker in consultation. [id number]/[id number] #: [id number] MTDD
--- NOTE | 2018-03-18 22:09 | DS ---
CC: Dr. Curry * DISCHARGE SUMMARY: DATE OF ADMISSION: 03/15/18. DATE OF DISCHARGE: 03/18/18. PRIMARY CARE PROVIDER: Dr. Curry. PRIMARY DIAGNOSIS: Cellulitis after cat bite with Pasteurella multocida. SECONDARY DIAGNOSIS: None. MEDICATIONS ON DISCHARGE: Include: 1. Calcium vitamin tab 1 tab daily. 2. Vitamin D 400 units daily. 3. Flagyl 500 mg 3 times a day for 10 days. 4. Culturelle 1 cap daily. 5. Keflex 500 mg 3 times a day for 10 days. 6. Calcium carbonate 1250 mg daily. Pertinent microbiology from 03/14/17, culture of right hand positive for Pasteurella multocida. LABORATORY DATA: Pertinent laboratory data, white blood cell count 11.7, day prior to discharge 8.3. HISTORY OF PRESENT ILLNESS AND HOSPITAL COURSE: This is a 68-year-old female with past medical history as outlined in the history of present illness on the day of admission without significant past medical history presented after a cat bite to her hand. She was seen in the emergency room prior to presentation, given a dose of Zosyn and sent home with Augmentin, however, continued to worsen. She presented to the hospital, started on IV antibiotics including Zosyn prior to narrowing to cefazolin and being discharged on Keflex along with Flagyl. She was consulted in conjunction with Infectious Disease who recommended Keflex as well as metronidazole. The patient's hand was dramatically improved at the time of discharge. The patient continues to have very minimal erythema over area of eschar right dorsal aspect of her hand. There were no complications during the patient's hospital stay. Reasons to return to the hospital including, but not limited to recurrent or worsening symptoms, fever, chills, night sweats, chest pain, shortness of breath , nausea, vomiting, lightheadedness, inability to obtain or tolerate medications were discussed with the patient. She acknowledged understanding. TIME SPENT: Greater than 45 minutes was spent on discharge of this patient, greater than half was spent [id number] with the patient. [id number]/CPS #: [id number] SELAM
== END 2018-03-18 18:30 | disposition home or self-care (01) | DRG 603 ==
LOC: ED 16:13 → MED 19:59
PROVIDERS: ADMIT Internal Medicine; ATTEND Internal Medicine
DX: L03.113 Cellulitis of right upper limb (principal); B96.89 Other specified bacterial agents as the cause of diseases classified elsewhere; D72.829 Elevated white blood cell count, unspecified; Z72.89 Other problems related to lifestyle; W55.01XA Bitten by cat, initial encounter; Y92.9 Unspecified place or not applicable; Z98.51 Tubal ligation status; Z83.3 Family history of diabetes mellitus; Z80.9 Family history of malignant neoplasm, unspecified
CPT/HCPCS: 36415; 80048; 80053; 81003; 81015; 83605; 85025; 85610; 85730; 86140; 87086; 90732; 99283; A9270-GY; J0690; J2543